=== PATIENT | male | born 1960 | race Caucasian/White ===

== ENCOUNTER 2022-05-15 07:46 | Outpatient (REF) | payer OTHER, SELFPAY ==
[2022-05-15 10:21] LABS: MANUAL DIFF FLAG NO
[2022-05-15 10:23] LABS: Basophils Absolute Auto 0.1 X10*3/uL (0.0-0.2); Basophils Percent Auto 1.8 % (0-2); Eosinophils Absolute Auto 0.3 X10*3/uL (0.0-0.4); Eosinophils Percent Auto 5.7 % (0-4); Hematocrit 42.3 % (42.0-52.0); Hemoglobin 14.7 g/dl (14.0-18.0); Imm Gran Abs Auto 0.01 X10*3/uL (0.00-0.03); Imm Gran Pct Auto 0.2 % (0.0-0.4); Lymphocytes Absolute Auto 1.2 X10*3/uL (1.2-4.9); Lymphocytes Percent Auto 20.4 % (20-40); Mean Corpuscular HGB Conc 34.8 g/dl (31.0-36.0); Mean Corpuscular Hemoglobin 32.4 pg (27.0-33.0); Mean Corpuscular Volume 93.2 fL (80.0-98.0); Mean Platelet Volume 9.5 fL (9.4-12.4); Monocytes Absolute Auto 0.5 X10*3/uL (0.1-1.2); Monocytes Percent Auto 7.5 % (2-11); Neutrophils Absolute Auto 3.8 x10*3/uL (2.0-8.3); Neutrophils Percent Auto 64.4 % (45-73); Platelet Count 258 X10*3/uL (160-400); Red Blood Count 4.54 X10*6/uL (4.60-5.80); Red Cell Distribution Width 12.1 % (11.0-16.0)
[2022-05-15 10:40] LABS: Estimated Average Glucose 103 mg/dL; Hemoglobin A1c % 5.2 %
[2022-05-15 11:20] LABS: Ferritin 118 ng/mL (20-250); Free T4 (Free Thyroxine) 0.91 ng/dL (0.71-1.85); Prostate Specific Antigen 1.43 ng/mL (<0.05-4.0); Thyroid Stimulating Hormone 1.38 uIU/mL (0.32-4.0); Vitamin D 25-OH Total 64.5 ng/mL (>30)
[2022-05-15 11:21] LABS: Alanine Aminotransferase 15 U/L (0-40); Albumin Level 4.1 g/dL (3.5-5.0); Alkaline Phosphatase 45 U/L (39-117); Anion Gap 11 (12-20); Aspartate Amino Transferase 15 U/L (5-37); Bilirubin Total 1.5 mg/dL (0.0-1.0); Blood Urea Nitrogen 9 mg/dL (9-16); Calcium 9.1 mg/dL (8.4-10.2); Carbon Dioxide 27 mmol/L (22-29); Chloride 104 mmol/L (96-108); Cholesterol 223 mg/dL; Estimated Glomerular Filt Rate > 60; Glucose Random 90 mg/dL (60-115); HDL Cholesterol 53 mg/dL; Iron 129 mcg/dL (45-160); LDL Cholesterol Calculated 158 mg/dl; Percent Iron Saturation 39 % (15-50); Potassium 4.3 mmol/L (3.3-5.1); Sodium 138 mmol/L (135-145); Total Iron Binding Capacity 330 mcg/dL (228-428); Total Protein 6.8 g/dL (6.5-8.0); Triglycerides 64 mg/dL; Unsaturated Iron Binding 201 ug/dL
[2022-05-15 11:50] LABS: Folate 14.3 ng/mL (> or = 4.0); Vitamin B12 559 pg/mL (200-900)
[2022-05-20 15:34] LABS: Testosterone, Total 696 ng/dL (250-1100)
== END 2022-05-15 07:47 | disposition home or self-care (01) ==
LOC: HO.MANLDS 07:46
PROVIDERS: Visit Provider Physician Assistant
DX: Z00.00 Encounter for general adult medical examination without abnormal findings (principal); Z12.5 Encounter for screening for malignant neoplasm of prostate; R53.83 Other fatigue
CPT/HCPCS: 36415; 80053; 80061; 82306; 82607; 82728; 82746; 83036; 83540; 84153; 84403; 84439; 84443; 85025